=== PATIENT | female | born 1970 | race Caucasian/White ===

== ENCOUNTER 2017-07-09 23:46 | Emergency (ER) | payer BC ==
[2017-07-09] MEDS ORDERED: Albuterol/Ipratropium 3.0-0.5 MG/3 ML Neb Soln NEB ONE (23:54)
--- NOTE | 2017-07-09 23:58 | EDM.PDOC ---
ED HPI GENERAL MEDICAL PROBLEM - General Chief Complaint: Respiratory Problem Stated Complaint: CHEST PAIN Time Seen by Provider: 07/09/17 23:58 Source of Information: Reports: Patient - History of Present Illness INITIAL COMMENTS - FREE TEXT/NARRATIVE: HISTORY AND PHYSICAL: History of present illness: [Patient presents with cough over the last 5 days with intermittent shortness of breath she complains of some vague chest discomfort no current fever nausea vomiting chills sweats no dizziness or palpitation no radiation arm neck or jaw no diaphoresis ] Review of systems: As per history of present illness and below otherwise all systems reviewed and negative. Past medical history: As per history of present illness and as reviewed below otherwise noncontributory. Surgical history: As per history of present illness and as reviewed below otherwise noncontributory. Social history: No reported history of drug or alcohol abuse. Family history: As per history of present illness and as reviewed below otherwise noncontributory. Physical exam: HEENT: Atraumatic, normocephalic, pupils reactive, negative for conjunctival pallor or scleral icterus, mucous membranes moist, throat clear, neck supple, nontender, trachea midline. Lungs: Clear to auscultation, breath sounds equal bilaterally, chest nontender. Heart: S1S2, regular, negative for clicks, rubs, or JVD. Abdomen: Soft, nondistended, nontender. Negative for masses or hepatosplenomegaly. Negative for costovertebral tenderness. Pelvis: Stable nontender. Genitourinary: Deferred. Rectal: Deferred. Extremities: Atraumatic, negative for cords or calf pain. Neurovascular unremarkable. Neuro: Awake, alert, oriented. Cranial nerves II through XII unremarkable. Cerebellum unremarkable. Motor and sensory unremarkable throughout. Exam nonfocal. Diagnostics: [CBC CMP troponin EKG Chest 1 view Influenza ] Therapeutics: [ DuoNeb ] HFA work note Phenergan with codeine Impression: Influenza [ cough ] Definitive disposition and diagnosis as appropriate pending reevaluation and review of above. Chest/Sternum Pain Score (Numeric/FACES): 7 - Related Data Allergies Allergy/AdvReac Type Severity Reaction Status Date / Time amoxicillin trihydrate Allergy Hives Verified 07/09/17 23:54 [From Augmentin] potassium clavulanate Allergy Hives Verified 07/09/17 23:54 [From Augmentin] Home Meds: Home Meds Citalopram Hydrobromide [Citalopram HBr] 20 mg PO DAILY 02/09/15 [History] Norgestimate-Ethinyl Estradiol [Tri-Sprintec Tablet] 1 tab PO DAILY 02/09/15 [ History] Sodium Fluoride [Denta 5000 Plus] 51 mg DAILY 02/09/15 [History] Past Medical History Other HEENT History: neck tumor Other Musculoskeletal History: foot surgery Other Oncologic History: adenoidcyctic carcinoma Social & Family History - Tobacco Use Smoking Status *Q: Never Smoker - Recreational Drug Use Recreational Drug Use: No ED ROS GENERAL - Review of Systems Review Of Systems: ROS reveals no pertinent complaints other than HPI. ED EXAM, GENERAL - Physical Exam Exam: See Below Course - Vital Signs Last Recorded V/S: Last Vital Signs Temp 96.2 F 07/09/17 23:51 Pulse 107 H 07/09/17 23:51 Resp 12 07/09/17 23:51 BP 134/82 07/09/17 23:51 Pulse Ox 98 07/09/17 23:51 - Orders/Labs/Meds Orders: Active Orders 24 hr Category Date Time Status EKG 12 Lead [EKG Documentation Completion] [RC] STAT Care 07/09/17 23:54 Active RT Aerosol Therapy [RC] ASDIRECTED Care 07/09/17 23:54 Active Chest 1V Frontal [CR] Stat Exams 07/09/17 23:57 Taken Labs: Laboratory Tests 07/09/17 07/09/17 Range/Units 00:10 00:10 WBC 2.61 L (4.0-11.0) K/uL RBC 4.72 (4.30-5.90) M/uL Hgb 12.8 (12.0-16.0) g/dL Hct 37.9 (36.0-46.0) % MCV 80.3 (80.0-98.0) fL MCH 27.1 (27.0-32.0) pg MCHC 33.8 (31.0-37.0) g/dL RDW Std Deviation 45.6 (28.0-62.0) fl RDW Coeff of Lizzy 16 H (11.0-15.0) % Plt Count 233 (150-400) K/uL MPV 8.70 (7.40-12.00) fL Neut % (Auto) 50.1 (48.0-80.0) % Lymph % (Auto) 34.9 (16.0-40.0) % Blaine % (Auto) 13.8 (0.0-15.0) % Eos % (Auto) 0.4 (0.0-7.0) % Baso % (Auto) 0.8 (0.0-1.5) % Neut # (Auto) 1.3 L (1.4-5.7) K/uL Lymph # (Auto) 0.9 (0.6-2.4) K/uL Blaine # (Auto) 0.4 (0.0-0.8) K/uL Eos # (Auto) 0.0 (0.0-0.7) K/uL Baso # (Auto) 0.0 (0.0-0.1) K/uL Nucleated RBC % 0.0 /100WBC Nucleated RBCs # 0 K/uL Sodium 137 (136-145) mmol/L Potassium 3.7 (3.5-5.1) mmol/L Chloride 102 (98-107) mmol/L Carbon Dioxide 23.5 (21.0-32.0) mmol/L BUN 9 (7.0-18.0) mg/dL Creatinine 1.0 (0.6-1.0) mg/dL Est Cr Clr Drug Dosing 62.81 mL/min Estimated GFR (MDRD) 59.7 ml/min Glucose 115 H (74-106) mg/dL Calcium 8.7 (8.5-10.1) mg/dL Total Bilirubin 0.2 (0.2-1.0) mg/dL AST 31 (15-37) IU/L ALT 22 (14-63) IU/L Alkaline Phosphatase 35 L (46-116) U/L Troponin I < 0.050 (0.000-0.056) ng/mL Total Protein 8.1 (6.4-8.2) g/dL Albumin 3.3 L (3.4-5.0) g/dL Globulin 4.8 H (2.0-3.5) g/dL Albumin/Globulin Ratio 0.7 L (1.3-2.8) Meds: Medications Discontinued Medications Generic Name Dose Route Start Last Admin Trade Name Freq PRN Reason Stop Dose Admin Albuterol/Ipratropium 3 ml 07/09/17 23:54 07/10/17 00:08 Duoneb 3.0-0.5 Mg/3 Ml NEB 07/09/17 23:55 3 ml ONETIME ONE Administration Departure - Departure Time of Disposition: :03 Disposition: Home, Self-Care 01 Condition: Good Clinical Impression: Influenza - Discharge Information Referrals: PCP,None [Primary Care Provider] - Forms: ED Department Discharge Additional Instructions: The following information is given to patients seen in the emergency department who are being discharged to home. This information is to outline your options for follow-up care. We provide all patients seen in our emergency department with a follow-up referral. The need for follow-up, as well as the timing and circumstances, are variable depending upon the specifics of your emergency department visit. If you don't have a primary care physician on staff, we will provide you with a referral. We always advise you to contact your personal physician following an emergency department visit to inform them of the circumstance of the visit and for follow-up with them and/or the need for any referrals to a consulting specialist. The emergency department will also refer you to a specialist when appropriate. This referral assures that you have the opportunity for follow-up care with a specialist. All of these measure are taken in an effort to provide you with optimal care, which includes your follow-up. Under all circumstances we always encourage you to contact your private physician who remains a resource for coordinating your care. When calling for follow-up care, please make the office aware that this follow-up is from your recent emergency room visit. If for any reason you are refused follow-up, please contact the [facility] emergency department at and asked to speak to the emergency department charge nurse. - My Orders Last 24 Hours: My Active Orders 07/09/17 23:54 EKG 12 Lead [EKG Documentation Completion] [RC] STAT RT Aerosol Therapy [RC] ASDIRECTED 07/09/17 23:57 Chest 1V Frontal [CR] Stat - Assessment/Plan Last 24 Hours: My Active Orders 07/09/17 23:54 EKG 12 Lead [EKG Documentation Completion] [RC] STAT RT Aerosol Therapy [RC] ASDIRECTED 07/09/17 23:57 Chest 1V Frontal [CR] Stat
[2017-07-10 00:40] LABS: CHLORIDE,CL 102 mmol/L (98-107); SODIUM,NA 137 mmol/L (136-145)
[2017-07-10 01:14] VITALS: BP 119/79
--- NOTE | 2017-07-10 10:50 | CR ---
EXAM DATE: 07/09/17 PATIENT'S AGE: 47 Patient: CAMRON FLOWERS Facility: [place], [place] Site . Site : [id number] Study: XRay Chest [id number]/19/2018 12:44:39 AM Ordering Physician: Eden Boone Final Report: INDICATION: PAIN, PT STATES SEVERE COUGH SINCE SAT TECHNIQUE: Chest 1 view. COMPARISON: None. FINDINGS: Cardiovascular and mediastinum: Heart size and vasculature are normal in caliber and appearance. Mediastinum is within normal limits. Lungs and pleural space: Lungs are clear. No sign of infiltrate or mass. No sign of pleural effusion. No pneumothorax. Bones and soft tissues: No significant findings. IMPRESSION: Unremarkable chest. Dictated by: Abiel Wong MD @ 07/10/2017 00:47:19 (Electronic Signature) Report Signed by Proxy. [facility] CENTERParvez
== END 2017-07-10 01:11 | disposition home or self-care (01) ==
LOC: MW.ED 23:46
DX: J11.1 Influenza due to unidentified influenza virus with other respiratory manifestations (principal); Z88.1 Allergy status to other antibiotic agents; Z88.8 Allergy status to other drugs, medicaments and biological substances; Z79.899 Other long term (current) drug therapy
CPT/HCPCS: 36415; 71045; 71045-26; 80053; 84484; 85025; 87804; 94640; 99285-25

== ENCOUNTER 2022-11-25 11:42 | Emergency (ER) | payer BC ==
[2022-11-25] MEDS ORDERED: Aspirin 81 MG Tab.Chew PO ONE (12:11)
[2022-11-25 12:19] LABS: BASOPHILS PERCENT AUTO 0.6 % (0.0-1.5); EOSINOPHILS ABSOLUTE AUTO 0.2 K/uL (0.0-0.7); EOSINOPHILS PERCENT AUTO 4.2 % (0.0-7.0); HEMOGLOBIN 13.4 g/dL (12.0-16.0); LYMPHOCYTES ABSOLUTE AUTO 1.3 K/uL (0.6-2.4); LYMPHOCYTES PERCENT AUTO 27.2 % (16.0-40.0); MEAN CORPUSCULAR HEMOGLOBIN 29.2 pg (27.0-32.0); MEAN CORPUSCULAR HGB CONC 33.5 g/dL (31.0-37.0); MEAN CORPUSCULAR VOLUME 87.1 fL (80.0-98.0); MONOCYTES ABSOLUTE AUTO 0.4 K/uL (0.0-0.8); MONOCYTES PERCENT AUTO 8.5 % (0.0-15.0); NEUTROPHILS ABSOLUTE AUTO 2.9 K/uL (1.4-5.7); NEUTROPHILS PERCENT AUTO 59.5 % (48.0-80.0); NRBC ABSOLUTE 0 K/uL; PLATELET COUNT,PLT 288 K/uL (150-400); RED BLOOD CELL COUNT 4.59 M/uL (4.30-5.90); WHITE BLOOD CELL COUNT,WBC 4.81 K/uL (4.0-11.0)
[2022-11-25 12:42] LABS: A/G RATIO 0.9 (0.9-1.6); ALBUMIN 3.8 g/dL (3.4-5.0); BILIRUBIN TOTAL 0.5 mg/dL (0.2-1.0); CALCIUM 9.3 mg/dL (8.5-10.1); CARBON DIOXIDE,CO2 27.3 mmol/L (21.0-32.0); CREATININE 0.9 mg/dL (0.6-1.0); EST CRCL DRUG DOSING (CG) 66.54 mL/min; POTASSIUM,K 3.8 mmol/L (3.5-5.1); PROTEIN TOTAL,TP 7.9 g/dL (6.4-8.2)
[2022-11-25 19:31] VITALS: BP 113/63; PULSE 81
== END 2022-11-25 15:30 | disposition home or self-care (01) ==
LOC: MW.ED 11:42
DX: R07.9 Chest pain, unspecified (principal); Z79.899 Other long term (current) drug therapy; Z88.1 Allergy status to other antibiotic agents
CPT/HCPCS: 36415; 71045; 80053; 83690; 84484; 85025; 85730; 93005; 99285; A9270; 93010; 99283

== ENCOUNTER 2024-10-01 12:17 | Emergency (ER) | payer BC ==
[2024-10-01 12:26] VITALS: BP 111/63
[2024-10-01 13:26] VITALS: PULSE 84
== END 2024-10-01 13:27 | disposition home or self-care (01) ==
LOC: MW.ED 12:17
DX: S93.401A Sprain of unspecified ligament of right ankle, initial encounter (principal); Z88.1 Allergy status to other antibiotic agents; Z79.899 Other long term (current) drug therapy; Z90.49 Acquired absence of other specified parts of digestive tract; X50.1XXA Overexertion from prolonged static or awkward postures, initial encounter
CPT/HCPCS: 73610-26-RT; 73610-RT; 99283

== ENCOUNTER 2024-10-16 19:49 | Emergency (ER) | payer BC ==
[2024-10-16] MEDS: Ondansetron 4 MG/2 ML SDV IVPUSH ONE (19:53)
[2024-10-16] MEDS: Propofol 200 MG/20 ML SDV IVPUSH ONE (20:47)
[2024-10-16] MEDS: Ketamine 500 mg/10 ML MDV IV ONE (20:48)
[2024-10-16 21:01] VITALS: BP 118/69
[2024-10-16 21:36] VITALS: PULSE 95
[2024-10-16] MEDS: Ketorolac 30 MG/ML SDV IVPUSH ONE (21:48)
== END 2024-10-16 23:46 | disposition home or self-care (01) ==
LOC: MW.ED 19:49
DX: S82.891A Other fracture of right lower leg, initial encounter for closed fracture (principal); Z75.3 Unavailability and inaccessibility of health-care facilities; Z88.8 Allergy status to other drugs, medicaments and biological substances; Z79.82 Long term (current) use of aspirin; Z79.899 Other long term (current) drug therapy; X50.1XXA Overexertion from prolonged static or awkward postures, initial encounter
CPT/HCPCS: 27818; 73590; 73600; 73610; 96374; 96375; 99152; 99284; A9270; J1885; J2003; J2405; J2704; J3490; J1171

== ENCOUNTER 2024-10-20 06:33 | Day surgery (SDC) | payer BC ==
[2024-10-20] MEDS ORDERED: dexmedeTOMIDine HCl 200 MCG/2 ML SDV ONE (07:07)
[2024-10-20] MEDS ORDERED: Ropivacaine 0.5% 5 MG/ML 30 ML SDV ONE (07:08)
[2024-10-20] MEDS ORDERED: Propofol 200 MG/20 ML SDV ONE (07:10)
[2024-10-20] MEDS ORDERED: fentaNYL 100 MCG/2 ML SDV ONE (07:10)
[2024-10-20] MEDS ORDERED: Ondansetron 4 MG/2 ML SDV IVPUSH PRN (07:16)
[2024-10-20] MEDS ORDERED: fentaNYL 50 MCG/ML SDV IVPUSH PRN (07:16)
[2024-10-20] MEDS ORDERED: Albuterol 0.083% 2.5 MG/3 ML Neb Soln NEB PRN (07:16)
[2024-10-20] MEDS ORDERED: Naloxone 0.4 MG/ML SDV IVPUSH PRN (07:16)
[2024-10-20] MEDS: Lactated Ringers 1,000 ML IV SCH (07:26)
[2024-10-20] MEDS ORDERED: Midazolam 1 MG/ML 2 ML SDV ONE (07:27)
[2024-10-20] MEDS ORDERED: ceFAZolin 2 GM in Water For Injection, Sterile 20 ML IVPUSH ONE (08:00)
[2024-10-20] MEDS ORDERED: Ketamine HCL/NACL, ISO-OSM 50 MG/5 ML Syringe ONE (08:04)
[2024-10-20] MEDS ORDERED: Phenylephrine 1% 10 MG/ML SDV ONE (08:30)
[2024-10-20] MEDS ORDERED: Ketorolac 30 MG/ML SDV ONE (09:26)
[2024-10-20 13:02] VITALS: BP 96/59; PULSE 79
== END 2024-10-20 12:40 | disposition home or self-care (01) ==
LOC: MW.SDS 06:33
PROVIDERS: ATTEND Orthopaedic Surgery
DX: S82.851A Displaced trimalleolar fracture of right lower leg, initial encounter for closed fracture (principal); S93.431A Sprain of tibiofibular ligament of right ankle, initial encounter; I10 Essential (primary) hypertension; Z79.82 Long term (current) use of aspirin; Z88.8 Allergy status to other drugs, medicaments and biological substances; Z79.899 Other long term (current) drug therapy
CPT/HCPCS: 01480; 64447; 76000; J0690; J1885; J2003; J2250; J2371; J2704; J2795; J3010; J3490; J7120

== ENCOUNTER 2024-11-24 17:25 | Emergency (ER) | payer BC ==
[2024-11-24 17:33] VITALS: BP 118/82; PULSE 118
[2024-11-24 18:08] LABS: BASOPHILS ABSOLUTE AUTO 0.02 K/uL (0.00-0.20); BASOPHILS PERCENT AUTO 0.4 % (0.0-1.0); EOSINOPHILS ABSOLUTE AUTO 0.25 K/uL (0.00-0.45); EOSINOPHILS PERCENT AUTO 5.0 % (0.0-6.0); IMMATURE GRAN ABSOLUTE AUTO 0.01 K/uL (0.00-0.05); IMMATURE GRAN PERCENT AUTO 0.2 % (0.0-0.4); LYMPHOCYTES ABSOLUTE AUTO 1.37 K/uL (1.00-4.80); LYMPHOCYTES PERCENT AUTO 27.4 % (24.0-44.0); MEAN PLATELET VOLUME 8.8 fL (9.4-12.3); MONOCYTES ABSOLUTE AUTO 0.49 K/uL (0.00-0.80); MONOCYTES PERCENT AUTO 9.8 % (0.0-8.0); NEUTROPHILS ABSOLUTE AUTO 2.86 K/uL (1.80-7.70); NEUTROPHILS PERCENT AUTO 57.2 % (41.0-71.0); NRBC ABSOLUTE 0.00 K/uL (0.00-0.02); NRBC PERCENT 0.0 /100WBC (0.0-0.2); PLATELET COUNT,PLT 272 K/uL (150-400); RED BLOOD CELL COUNT 4.33 M/uL (4.10-5.30); WHITE BLOOD CELL COUNT,WBC 5.00 K/uL (3.9-11.3)
[2024-11-24 18:20] LABS: GLUCOSE,URINE NEGATIVE (NEGATIVE); OCCULT BLOOD,URINE LARGE (NEGATIVE)
[2024-11-24 18:27] LABS: APPEARANCE,URINE CLOUDY
[2024-11-24 18:39] LABS: A/G RATIO 1.0 (0.9-1.6); ALANINE AMINOTRANSFERASE,ALT 25.0 IU/L (14-63); ASPARTATE AMNIOTRANSFERASE,AST 22.0 IU/L (15-37); BILIRUBIN TOTAL 0.5 mg/dL (0.2-1.0); BLOOD UREA NITROGEN,BUN 18.0 mg/dL (7.0-18.0); CARBON DIOXIDE,CO2 27.0 mmol/L (21.0-32.0); CHLORIDE,CL 103.0 mmol/L (98-107); CREATININE 1.1 mg/dL (0.6-1.0); EST CRCL DRUG DOSING (CG) 53.22 mL/min; GLUCOSE RANDOM 85.0 mg/dL (74-106); POTASSIUM,K 3.2 mmol/L (3.5-5.1); PROTEIN TOTAL,TP 7.9 g/dL (6.4-8.2); SODIUM,NA 139.0 mmol/L (136-145)
[2024-11-24 18:44] LABS: EPITHELIAL CELLS,URINE FEW (NONE-FEW)
[2024-11-24 18:52] LABS: ESTIMATED GFR 60.0 mL/min (>60)
[2024-11-24] MEDS: Ketorolac 30 MG/ML SDV IVPUSH PRN (19:14)
== END 2024-11-24 19:42 | disposition home or self-care (01) ==
LOC: MW.ED 17:25
DX: N13.2 Hydronephrosis with renal and ureteral calculous obstruction (principal); I25.2 Old myocardial infarction; Z79.899 Other long term (current) drug therapy; Z79.1 Long term (current) use of non-steroidal anti-inflammatories (NSAID); Z88.1 Allergy status to other antibiotic agents; Z90.49 Acquired absence of other specified parts of digestive tract
CPT/HCPCS: 36415; 74176; 80053; 81001; 83690; 85025; 96374; 99284; A9270; J1885

== ENCOUNTER 2024-12-24 07:29 | Emergency (ER) | payer BC ==
[2024-12-24 08:04] LABS: BASOPHILS ABSOLUTE AUTO 0.03 K/uL (0.00-0.20); BASOPHILS PERCENT AUTO 0.5 % (0.0-1.0); EOSINOPHILS ABSOLUTE AUTO 0.40 K/uL (0.00-0.45); EOSINOPHILS PERCENT AUTO 7.0 % (0.0-6.0); IMMATURE GRAN ABSOLUTE AUTO 0.01 K/uL (0.00-0.05); IMMATURE GRAN PERCENT AUTO 0.2 % (0.0-0.4); LYMPHOCYTES ABSOLUTE AUTO 1.42 K/uL (1.00-4.80); LYMPHOCYTES PERCENT AUTO 25.0 % (24.0-44.0); MEAN PLATELET VOLUME 8.6 fL (9.4-12.3); MONOCYTES ABSOLUTE AUTO 0.51 K/uL (0.00-0.80); MONOCYTES PERCENT AUTO 9.0 % (0.0-8.0); NEUTROPHILS ABSOLUTE AUTO 3.31 K/uL (1.80-7.70); NEUTROPHILS PERCENT AUTO 58.3 % (41.0-71.0); NRBC ABSOLUTE 0.00 K/uL (0.00-0.02); NRBC PERCENT 0.0 /100WBC (0.0-0.2); PLATELET COUNT,PLT 299 K/uL (150-400); RED BLOOD CELL COUNT 4.11 M/uL (4.10-5.30); WHITE BLOOD CELL COUNT,WBC 5.68 K/uL (3.9-11.3)
[2024-12-24 08:06] LABS: APPEARANCE,URINE CLEAR; GLUCOSE,URINE NEGATIVE (NEGATIVE); OCCULT BLOOD,URINE LARGE (NEGATIVE)
[2024-12-24] MEDS: Sodium Chloride 0.9% 2.5 ML Syringe FLUSH PRN (08:11)
[2024-12-24] MEDS: Ondansetron 4 MG/2 ML SDV IVPUSH ONE (08:12)
[2024-12-24] MEDS: Ondansetron 4 MG Tab.DIS PO ONE (08:12)
[2024-12-24] MEDS: Sodium Chloride 0.9% 10 ML Syringe FLUSH PRN (08:12)
[2024-12-24 08:21] LABS: EPITHELIAL CELLS,URINE RARE (NONE-FEW)
[2024-12-24 08:31] LABS: ALANINE AMINOTRANSFERASE,ALT 16.0 IU/L (14-63); ASPARTATE AMNIOTRANSFERASE,AST 16.0 IU/L (15-37); CHLORIDE,CL 106.0 mmol/L (98-107); POTASSIUM,K 3.6 mmol/L (3.5-5.1); PROTEIN TOTAL,TP 7.9 g/dL (6.4-8.2); SODIUM,NA 144.0 mmol/L (136-145)
[2024-12-24 08:47] LABS: A/G RATIO 1.1 (0.9-1.6); BLOOD UREA NITROGEN,BUN 14.0 mg/dL (7.0-18.0)
[2024-12-24 09:00] LABS: BILIRUBIN TOTAL 0.5 mg/dL (0.2-1.0); CREATININE 0.7 mg/dL (0.6-1.0); EST CRCL DRUG DOSING (CG) 83.63 mL/min; GLUCOSE RANDOM 99.0 mg/dL (74-106)
[2024-12-24 09:04] LABS: CARBON DIOXIDE,CO2 24.7 mmol/L (21.0-32.0)
[2024-12-24 09:08] LABS: ESTIMATED GFR 103.0 mL/min (>60)
[2024-12-24] MEDS: Ketorolac 30 MG/ML SDV IVPUSH ONE (10:31)
[2024-12-24 10:36] VITALS: BP 129/81; PULSE 94
== END 2024-12-24 10:34 | disposition home or self-care (01) ==
LOC: MW.ED 07:29
DX: N13.2 Hydronephrosis with renal and ureteral calculous obstruction (principal); I25.2 Old myocardial infarction; Z88.0 Allergy status to penicillin; Z79.899 Other long term (current) drug therapy; Z79.82 Long term (current) use of aspirin
CPT/HCPCS: 36415; 74176; 80053; 81001; 83735; 85025; 96361; 96374; 99284; J2405; J7030

== ENCOUNTER 2024-12-24 23:40 | Emergency (ER) | payer BC ==
[2024-12-25 00:47] LABS: GLUCOSE,URINE NEGATIVE (NEGATIVE); OCCULT BLOOD,URINE SMALL (NEGATIVE)
[2024-12-25 01:00] LABS: APPEARANCE,URINE SLT CLOUDY
[2024-12-25 01:01] LABS: EPITHELIAL CELLS,URINE FEW (NONE-FEW)
[2024-12-25 01:05] LABS: BASOPHILS ABSOLUTE AUTO 0.03 K/uL (0.00-0.20); BASOPHILS PERCENT AUTO 0.5 % (0.0-1.0); EOSINOPHILS ABSOLUTE AUTO 0.29 K/uL (0.00-0.45); EOSINOPHILS PERCENT AUTO 4.5 % (0.0-6.0); IMMATURE GRAN ABSOLUTE AUTO 0.02 K/uL (0.00-0.05); IMMATURE GRAN PERCENT AUTO 0.3 % (0.0-0.4); LYMPHOCYTES ABSOLUTE AUTO 1.45 K/uL (1.00-4.80); LYMPHOCYTES PERCENT AUTO 22.5 % (24.0-44.0); MEAN PLATELET VOLUME 9.0 fL (9.4-12.3); MONOCYTES ABSOLUTE AUTO 0.65 K/uL (0.00-0.80); MONOCYTES PERCENT AUTO 10.1 % (0.0-8.0); NEUTROPHILS ABSOLUTE AUTO 4.01 K/uL (1.80-7.70); NEUTROPHILS PERCENT AUTO 62.1 % (41.0-71.0); NRBC ABSOLUTE 0.00 K/uL (0.00-0.02); NRBC PERCENT 0.0 /100WBC (0.0-0.2); PLATELET COUNT,PLT 265 K/uL (150-400); RED BLOOD CELL COUNT 3.73 M/uL (4.10-5.30); WHITE BLOOD CELL COUNT,WBC 6.45 K/uL (3.9-11.3)
[2024-12-25 01:21] LABS: A/G RATIO 1.1 (0.9-1.6); ALANINE AMINOTRANSFERASE,ALT 16 IU/L (14-63); ASPARTATE AMNIOTRANSFERASE,AST 15 IU/L (15-37); BILIRUBIN TOTAL 0.6 mg/dL (0.2-1.0); BLOOD UREA NITROGEN,BUN 13 mg/dL (7.0-18.0); CARBON DIOXIDE,CO2 27.6 mmol/L (21.0-32.0); CHLORIDE,CL 104 mmol/L (98-107); CREATININE 0.7 mg/dL (0.6-1.0); GLUCOSE RANDOM 97 mg/dL (74-106); POTASSIUM,K 3.5 mmol/L (3.5-5.1); PROTEIN TOTAL,TP 7.2 g/dL (6.4-8.2); SODIUM,NA 141 mmol/L (136-145)
[2024-12-25 01:29] LABS: ESTIMATED GFR 103 mL/min (>60)
[2024-12-25 01:59] VITALS: BP 109/64; PULSE 85
== END 2024-12-25 02:01 | disposition home or self-care (01) ==
LOC: MW.ED 23:40
DX: I95.9 Hypotension, unspecified (principal); I25.2 Old myocardial infarction; Z79.899 Other long term (current) drug therapy; Z79.82 Long term (current) use of aspirin; Z88.0 Allergy status to penicillin
CPT/HCPCS: 36415; 80053; 81001; 84484; 85025; 87086; 93005; 96360; 99285; A9270; J7030; 93010; 99283